=== PATIENT | male | born 1990 | race Caucasian/White ===

== ENCOUNTER 2017-02-05 14:17 | Emergency (ER) | payer OTHER ==
[~2017-02-05] VITALS: Ht 177.8 cm; Wt 99.8 kg
[2017-02-05] MEDS ORDERED: LAMOTRIGINE150 M1 PO (14:52)
[2017-02-05] MEDS ORDERED: ONFI10 M1 PO (14:53)
[2017-02-05] MEDS ORDERED: DIVALPROEX SOD500 M2 PO (14:54)
[2017-02-05 15:48] LABS: ABSOLUTE BASOPHIL COUNT 0 /CUMM (0.0-0.2); ABSOLUTE EOSINOPHIL COUNT 0.4 /CUMM (0.0-0.7); ABSOLUTE GRANULOCYTE CT 2.9 /CUMM (1.4-6.5); ABSOLUTE LYMPH COUNT 2.8 /CUMM (1.2-3.4); ABSOLUTE MONOCYTE COUNT 0.5 /CUMM (0.10-0.60); BASOPHIL % 0.4 % (0.0-2.0); EOSINOPHIL % 5.3 % (0-5); GRANULOCYTE % 44.5 % (42.2-75.2); HEMATOCRIT 44.8 % (42-52); MEAN CORPUSCULAR HGB 30.7 PG (27.0-31.0); MEAN CORPUSCULAR HGB CONC 34.4 G/DL (33.0-37.0); MEAN CORPUSCULAR VOLUME 89.3 FL (80.0-94.0); MEAN PLATELET VOLUME 7.2 FL (7.4-10.4); PLATELET COUNT 225 /CUMM (130-400); RBC DISTRIBUTION WIDTH 13.5 % (11.5-14.5); RED BLOOD CELL CT 5.02 /CUMM (4.70-6.10); WHITE BLOOD CELL COUNT 6.6 /CUMM (4.8-10.8)
--- NOTE | 2017-02-05 17:13 | ED PSYCHIATRIC COMPLAINT ---
History of Present Illness General Chief Complaint: Psychiatric Related Complaint Stated Complaint: PSY EVAL Source: patient, family, old records Exam Limitations: no limitations Vital Signs & Intake/Output Vital Signs & Intake/Output Vital Signs Date Time Temp Pulse Resp B/P Pulse O2 O2 Flow FiO2 Ox Delivery Rate 02/05 1815 97.2 88 20 143/92 97 Room Air 02/05 1421 97.4 79 16 133/86 95 Room Air Allergies Coded Allergies: No Known Allergies (02/05/17) Reconcile Medications Clobazam (ONFI) 10 MG TABLET 20 PO BID SEIZURES (Reported) 20 MG IN THE AM 15 MG IN THE PM Divalproex Sodium 500 MG TABLET.DR 1 TAB PO BID SEIZURES (Reported) Lamotrigine 150 MG TABLET 1 TAB PO BID SEIZURES (Reported) Triage Note: PT STATES HE WAS SENT IN BY HIS FOR PSYCH EVAL FOR SOME THOUGHTS OF +SI AND +HI. PT HAS EPILEPSY AND IS ON A LOT OF MEDICATION . PT STATES HE DOSE SMOKE POT AND DRINKS ONLY ON OCCASION. Triage Nurses Notes Reviewed? yes Onset: 2 weeks Duration: week(s):, constant, continues in ED, getting worse Timing: recent history Severity: moderate Associated Symptoms: anxiety, impaired concentration, insomnia, suicidal ideation HPI: 2 weeks prior to admission patient has had increasing thoughts of self-harm or harming others with anorexia insomnia. His seizure medications have been increased by his neurologist. He reports seeing things in his peripheral vision that are out to get him. There has been no fever chills nausea vomiting diarrhea abdominal pain chest pain shortness breath headache dysuria rash bleeding. Past History Travel History Traveled to [place] past 21 day No Medical History Any Pertinent Medical History? see below for history Neurological: EPILEPTIC Isolation History: Standard Surgical History Surgical History: non-contributory Psychosocial History What is your primary language Sammarinese Tobacco Use: Never used ETOH Use: occasional use Illicit Drug Use: marijuana Family History Hx Contributory? No Review of Systems Review of Systems Constitutional: Reports: no symptoms. EENTM: Reports: no symptoms. Respiratory: Reports: no symptoms. Cardiovascular: Reports: no symptoms. GI: Reports: no symptoms. Genitourinary: Reports: no symptoms. Musculoskeletal: Reports: no symptoms. Skin: Reports: no symptoms. Neurological/Psychological: Reports: see HPI, anxiety, cognitive dysfunction, confusion, emotional problems. Hematologic/Endocrine: Reports: no symptoms. Immunologic/Allergic: Reports: no symptoms. All Other Systems: Reviewed and Negative Physical Exam Physical Exam General Appearance: well developed/nourished, alert, awake, anxious, moderate distress Head: atraumatic, normal appearance Eyes: Bilateral: normal appearance, PERRL, EOMI. 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 yes 1 Depression/Hopelessness? yes 2 Previous Attempts/Psych Care yes 1 Rational Thinking Loss? yes 2 Single//? yes 1 Social Support? has support 0 Stated Future Intent? yes 2 Total 9 SAD PERSONS Done? yes Progress Differential Diagnosis: drug intoxication, drug overdose, drug withdrawal, electrolyte abnormality, hypoglycemia Plan of Care: Orders Procedure Date/time Status Regular Diet 02/05 D Active DEPAKOTE LEVEL 02/05 1530 Complete ED CRISIS PSYCH CONSULT 02/05 1518 Active Continuous Observation Monitor 02/05 1510 Active URINE DRUG SCREEN FOR ER ONLY 02/05 1510 Complete ETHANOL 02/05 1510 Complete COMPREHENSIVE METABOLIC PANEL 02/05 1510 Complete CBC WITHOUT DIFFERENTIAL 02/05 1510 Complete Laboratory Tests 02/05/17 1710: Urine Opiates Screen < 100.00, Methadone Screen < 40, Barbiturate Screen < 60, Ur Phencyclidine Scrn < 6.00, Amphetamines Screen < 100, U Benzodiazepines Scrn 98, Urine Cocaine Screen < 50, Urine Cannabis Screen > 80.00 H 02/05/17 1530: Anion Gap 12, Estimated GFR > 60, BUN/Creatinine Ratio 12.2, Glucose 82, Calcium 9.7, Total Bilirubin 0.7, AST 22, ALT 30, Alkaline Phosphatase 48, Total Protein 7.1, Albumin 4.4, Globulin 2.7, Albumin/Globulin Ratio 1.6, CBC w Diff NO MAN DIFF REQ, RBC 5.02, MCV 89.3, MCH 30.7, RDW 13.5, MPV 7.2 L, Gran % 44.5, Lymphocytes % 41.6, Monocytes % 8.2, Eosinophils % 5.3 H, Basophils % 0.4, Absolute Granulocytes 2.9, Absolute Lymphocytes 2.8, Absolute Monocytes 0.5, Absolute Eosinophils 0.4, Absolute Basophils 0, PUBS MCHC 34.4, Valproic Acid 79.4, Serum Alcohol < 10.0 02/05/17 1518: Valproic Acid Cancelled Hand-Off Endorsed To: COURTNEY AVILA,BEBE Chavira Endorsed Time: 1899 Pending: consult Departure Departure Disposition: STILL A PATIENT Condition: Stable Clinical Impression Primary Impression: Mood disorder as late effect of traumatic brain injury Secondary Impressions: Marijuana abuse Referrals: PATIENT HAS NO PRIMARY CARE DR (PCP/Family) Departure Forms: Customer Survey General Discharge Information
[2017-02-05 19:13] VITALS: BP 136/86
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
== END 2017-02-05 19:14 ==
LOC: ERH 14:17
PROVIDERS: Emergency Medicine
DX: F06.30 Mood disorder due to known physiological condition, unspecified (principal); S06.9X0S Unspecified intracranial injury without loss of consciousness, sequela; F12.10 Cannabis abuse, uncomplicated; X58.XXXS Exposure to other specified factors, sequela; Y93.9 Activity, unspecified; Y92.9 Unspecified place or not applicable
CPT/HCPCS: 80307; G0463; G0480